=== PATIENT | male | born 1980 | race Caucasian/White ===

== ENCOUNTER 2024-01-17 08:01 | Emergency (ER) | payer BC, SELFPAY ==
--- NOTE | ~2024-01-17 | XR_ITS ---
XR chest 2V Ordering provider: Eileen Boland NP History: 43 years Male with . cough, fever, SOB x 3 days; non smoker . Comparison: None. FINDINGS: MEDIASTINUM: The cardiac silhouette is not enlarged. LUNGS: No effusions or pneumothorax. Opacification in the right upper lobe area suggestive of pneumon ia. Follow-up to resolution is advised. OTHER: No free air under the diaphragm. IMPRESSION: Right upper lobe pneumonia. Reviewed, dictated and finalized at location A. IMPRESSION: Right upper lobe pneumonia.
[2024-01-17 08:15] VITALS: BP 129/87; PULSE 104; RESP 16; TEMP 37.2; O2SAT 98
[2024-01-17 08:41] LABS: EDCOVIDSCREEN Negative (Negative); EDINFLUASCREEN Negative (Negative); EDINFLUBSCREEN Negative (Negative)
--- NOTE | 2024-01-17 08:44 | ED.URI ---
HPI - URI/Sore Throat General Chief Complaint: Upper Respiratory Infection Stated Complaint: Fever/Cough Time Seen by Provider: 01/17/24 08:20 Source: patient Mode of arrival: ambulatory Limitations: no limitations History of Present Illness HPI Narrative: 43 yo M presents wtih c/o cough, chest congestion, fever, fatigue for 4 days. Fever this AM 102F. C/o cannot take full deep breath and SOB with exertion. Denies N/V. close contact had walking pneumonia last week . Patient also reports that left shoulder hurts with movement. Thinks he strained left upper back, shoulder when coughing. All systems reviewed and negative except as noted above. Related Data Allergies Allergy/AdvReac Type Severity Reaction Status Date / Time No Known Allergies Allergy Verified 01/17/24 08:17 Review of Systems Review of Systems: CONSTITUTIONAL: Reports fever, chills, or sweats. EYES: Denies visual changes, redness, or discharge. ENT: Denies rhinorrhea, congestion, sore throat, or otalgia. CARDIOVASCULAR: Denies chest pain, palpitations, or edema. RESPIRATORY: Reports cough and dyspnea with exertion. GASTROINTESTINAL: Denies abdominal pain, nausea, vomiting, or diarrhea. GENITOURINARY: Denies dysuria or hematuria. SKIN: Denies rash or itching. MUSCULOSKELETAL: Reports upper back pain. Denies joint pain, or myalgia. Reports left shoulder pain. NEUROLOGIC: Denies headache, numbness, or weakness. PSYCHIATRIC: Denies anxiety or depression. All other systems reviewed are negative, except as documented in HPI. PMFSH Comments At time of signature, agree with nursing past medical, surgical, social and family history. There is no relevant family history pertinent to the presenting complaint. Exam Narrative: GENERAL: This is a well-nourished, well-developed patient, patient ill-appearing but in no acute distress HEAD: normocephalic, atraumatic. EYES: PERRL. Sclera clear/white. Vision is grossly intact. EARS: External ears normal, auditory canals clear and without drainage, TMs normal without perforation. Hearing grossly intact. NOSE: External nose normal with no obvious nasal discharge, nares without redness, no rhinorrhea. THROAT: Mucous membranes moist, posterior pharynx clear. NECK: Neck supple, non-tender without lymphadenopathy, masses or thyromegaly. CARDIOVASCULAR: Regular rate and rhythm without murmurs, gallops, or rubs. RESPIRATORY: Decreased to right upper and mid lung field, otherwise clear Breath sounds equal bilaterally. No wheezes, rales, or rhonchi. SKIN: warm, Dry, intact with no suspicious lesions or rash, good texture and turgor. NEURO: awake, alert, and oriented to person, place and time. There were no obvious focal neurologic abnormalities. EXTREMITIES: No joint tenderness, effusion, or edema noted. Generalized muscular tenderness to left shoulder, left upper back, increase in pain with range of motion. Distal neurovascularly intact. BACK: Nontender without deformity. Course Course Level of Care: Express Care Visit Vital Signs Vital signs: Vital Signs Temperature 37.2 C 01/17/24 08:15 Pulse Rate 104 H 01/17/24 08:15 Respiratory Rate 16 01/17/24 08:15 Blood Pressure 129/87 01/17/24 08:15 Pulse Oximetry 98 01/17/24 08:15 Oxygen Delivery Room Air 01/17/24 08:15 Temperature 37.2 C 01/17/24 08:15 Pulse Rate 104 H 01/17/24 08:15 Respiratory Rate 16 01/17/24 08:15 Blood Pressure 129/87 01/17/24 08:15 Pulse Oximetry 98 01/17/24 08:15 Oxygen Delivery Room Air 01/17/24 08:15 Reviewed MDM - URI/Sore Throat MDM Narrative Medical decision making narrative: Discussed x-ray results with patient. Will treat patient with antibiotic for pneumonia. Recommend he continue [id number] medications to treat symptoms. Patient given Toradol IM for left shoulder strain. Patient is aware of diagnosis, understands and agrees to treatment plan. Anticipatory guidance given. Mirtha
[2024-01-17] MEDS: KETOROLAC (*BKC) 60 MG/2 ML VIAL IM (09:02)
== END 2024-01-17 09:14 | disposition home or self-care (01) ==
PROVIDERS: Emergency Provider Nurse Practitioner Family
DX: J18.1 Lobar pneumonia, unspecified organism (principal); S46.912A Strain of unspecified muscle, fascia and tendon at shoulder and upper arm level, left arm, initial encounter; X58.XXXA Exposure to other specified factors, initial encounter; Z20.822 Contact with and (suspected) exposure to COVID-19
CPT/HCPCS: 71046; 87426; 87804; 96372; 99203; G0463; J1885